=== PATIENT | female | born 1990 | race Caucasian/White ===

== ENCOUNTER 2019-01-22 17:14 | Inpatient (IN) ==
[2019-01-22] MEDS ORDERED: OXYTOCIN 10 UNIT/1 ML IM PRN (19:04)
[2019-01-22] MEDS ORDERED: Carboprost Inj 250 MCG/ML AMP IM PRN (19:04)
[2019-01-22] MEDS ORDERED: Metoclopramide Inj 10 MG/2 ML VIAL IV PRN (19:04)
[2019-01-22] MEDS ORDERED: LIDOCAINE W/ SODIUM BICARB 0.5 ML SYR SUBD PRN (19:04)
[2019-01-22] MEDS ORDERED: fentaNYL Inj 100 MCG/2 ML VIAL IV PRN (19:04)
[2019-01-22] MEDS ORDERED: CITRIC ACID/SODIUM CITRATE 30 ML CUP PO PRN (19:04)
[2019-01-22] MEDS ORDERED: Lidocaine 1% 10 MG/ML - 20 ML VIAL SUBCUT PRN (19:04)
[2019-01-22] MEDS ORDERED: LIDOCAINE HCL 2 % 10 ML JELLY URO-JECT TOPICAL PRN (19:04)
[2019-01-22] MEDS ORDERED: Nalbuphine Inj 20 MG/ML Ampule IVP PRN (19:04)
[2019-01-22] MEDS ORDERED: MISOPROSTOL 200 MCG TABLET RECTAL PRN (19:04)
[2019-01-22] MEDS ORDERED: CALCIUM CARBONATE 500 MG (TUMS) CHEWABLE TABLET PO PRN (19:04)
[2019-01-22] MEDS ORDERED: diphenhydrAMINE 50 MG/1 ML VIAL IVP PRN (19:04)
[2019-01-22] MEDS ORDERED: METHYLERGONOVINE MALEATE 0.2 MG/1 ML VIAL IM PRN (19:04)
[2019-01-22] MEDS ORDERED: ePHEDrine Inj 50 MG/ML AMP IVP PRN (19:04)
[2019-01-22] MEDS ORDERED: BUTORPHANOL TARTRATE 2 MG/1 ML VIAL IVP PRN (19:04)
[2019-01-22] MEDS ORDERED: ONDANSETRON 4 MG/2 ML VIAL IVP PRN ×2 (19:04)
[2019-01-22] MEDS ORDERED: Naloxone Inj 0.01 MG in Sodium Chloride 0.9% vial 1 ML IVP PRN (19:04)
[2019-01-22] MEDS ORDERED: FAMOTIDINE 20 MG/2 ML VIAL IVP PRN ×2 (19:04)
[2019-01-22] MEDS ORDERED: CefOXitin Inj 2 GM in Sodium Chloride 0.9% 100 ML IV PRN (19:04)
[2019-01-22] MEDS ORDERED: TERBUTALINE SULFATE 1 MG/1 ML SDV SUBCUT PRN (19:04)
[2019-01-22] MEDS ORDERED: Phenylephrine Inj 50 MCG in Sodium Chloride 0.9% vial 0.5 ML IVP PRN (19:04)
[2019-01-22] MEDS ORDERED: NALOXONE 0.4 MG/1 ML VIAL IVP PRN (19:04)
[2019-01-22] MEDS ORDERED: Oxytocin 20 Units + LR 20 UNIT/1,000 ML BAG IV SCH (19:15)
[2019-01-22] MEDS ORDERED: Zolpidem Tab 5 MG TAB PO PRN (20:01)
[2019-01-22] MEDS: Misoprostol Tab 100 MCG TAB VAGINAL PRN (20:23)
[2019-01-22 21:00] LABS: Hematocrit [HCT] 32.7 % (37.0-47.0); Hemoglobin [HGB] 11.2 g/dL (12.0-16.0); MEAN CORPUSCULAR HEMOGLOBIN 33.1 PG (27-31); MEAN CORPUSCULAR HGB CONC 34.3 g/dL (33-37); MEAN CORPUSCULAR VOLUME 96.7 FL (81-99); MEAN PLATELET VOLUME 10.8 FL (7.4-12.2); RED BLOOD COUNT 3.38 10^6/uL (4.20-5.40)
[2019-01-23] MEDS: Misoprostol Tab 100 MCG TAB VAGINAL PRN (01:07)
[2019-01-23] MEDS: Lactated Ringers-OB Dept 1,000 ML PRIMARY IV SCH ×2 (05:00→09:45)
[2019-01-23] MEDS ORDERED: Oxytocin 20 Units + LR 20 UNIT/1,000 ML BAG IV SCH ×2 (05:00→15:27)
[2019-01-23] MEDS ORDERED: Fent/Bupiv 2mcg/0.0625% Epid 250 ML ONE (09:21)
[2019-01-23] MEDS ORDERED: Lidocaine/Epi Inj 1.5% 5 ML AMPUL EPIDURAL ONE (09:21)
--- NOTE | 2019-01-23 09:47 | CRNA.PROCE ---
Central Neuraxis Block Placemt - - Safety Measures: Time Out Taken - - Type of Block: Epidural Reason for Block: Analgesia Moniters Used During Block: EKG, SPO2, NIBP Skin Prep Used: ChloroPrep Draped: Yes Skin Infiltration - Enter Amount Used in Comment Field: 1% Xylocaine (mL): Yes (skinwheal) Spinal Needle Used: 18 Hustead 80 mm Local Anesthetic - Enter Amount Used in Comment Field: 1.5 % Xylocaine with Epinephrine 1:200,000 (mL): Yes (5ml) Number of Centimeters Catheter Threaded: 4 Bioclusive Dressing Applied: Yes Anesthesia Time - Other Weight: 79.379 kg Height: 5 ft 8 in Body Mass Index (BMI): 26.6
[2019-01-23] MEDS ORDERED: fentaNYL 2 MCG/BUPIVACAINE 0.0625%/NS 0.9% 250 ML BAG EPIDURAL SCH (10:00)
[2019-01-23] MEDS ORDERED: Nalbuphine Inj 20 MG/ML Ampule IVP PRN (15:27)
[2019-01-23] MEDS ORDERED: Lidocaine 1% 10 MG/ML - 20 ML VIAL INTRADERM PRN (15:27)
[2019-01-23] MEDS ORDERED: LIDOCAINE HCL 2 % 10 ML JELLY URO-JECT TOPICAL PRN (15:27)
[2019-01-23] MEDS ORDERED: HYDROcodone-APAP 5 MG -325 MG TABLET PO PRN (15:27)
[2019-01-23] MEDS ORDERED: diphenhydrAMINE 50 MG/1 ML VIAL IVP PRN (15:27)
[2019-01-23] MEDS ORDERED: GLYCERIN/WITCH HAZEL 1 BOX TOPICAL PRN (15:27)
[2019-01-23] MEDS ORDERED: ACETAMINOPHEN 325 MG TABLET PO PRN (15:27)
[2019-01-23] MEDS ORDERED: diphenhydrAMINE 25 MG CAPSULE PO PRN (15:27)
[2019-01-23] MEDS ORDERED: LANOLIN HPA 40 GM TUBE TOPICAL PRN (15:27)
[2019-01-23] MEDS ORDERED: CALCIUM CARBONATE 500 MG (TUMS) CHEWABLE TABLET PO PRN (15:27)
[2019-01-23] MEDS ORDERED: Ondansetron ODT Tab 4 MG TAB PO PRN (15:27)
[2019-01-23] MEDS ORDERED: BENZOCAINE/MENTHOL SPRAY 56 GM BOTTLE TOPICAL PRN (15:27)
[2019-01-23] MEDS ORDERED: ONDANSETRON 4 MG/2 ML VIAL IVP PRN (15:27)
[2019-01-23] MEDS: IBUPROFEN 800 MG TABLET PO PRN (17:03)
--- NOTE | 2019-01-23 21:35 | OB.DEL.SUM ---
Delivery Note Delivery Summary: Pt is a 28 yo G2 now P1 at 39 6/7 weeks by early u/s who presented last noc for cervical ripening and later induction for term . She received 2 doses of cytotec and proceeded into active labor. This morning, she had an epidural placed for analgesia and then amniotomy was performed when she was 4/-1. T here was a small amount of clear fluid. An IUPC was placed to more closely monitor contractions and pitocin was used to augment labor. The pt proceeded normally through active labor to c/c/+1 at 1230. She began to push a short time later. She delivered a viable female infant over a small right mediolateral episiotomy after verbal consent was obtained from the patient. The indication for the episiotomy was a tight vaginal introitus and maternal fatigue. Time of delivery was 1403. After delivery, the baby's nose and mouth were suctioned with the bulb suction. Cord clamping was delayed x 45 seconds and baby was placed on mom's chest during this time. The cord was then doubly clamped by myself and cut by the father of the baby. The placenta delivered spontaneously and intact a short time later. There was a 3 vessel cord. Cord gas and cord blood were obtained for analysis. 20 mU of pitocin was infused. With bimanual massage, the uterus firmed up nicely. The vagina and perineum were examined and the second degree episiotomy was repaired in the normal fashion with 3-0 vicryl rapide suture. There was no extension of the episiotomy. A right vaginal sidewall laceration was also noted and repaired in the normal fashion with 3-0 vicryl rapide suture. No other lacerations were noted. Apgars were 9 at 1 minute and 10 at 5 minutes. Baby weighed 7#12oz and was 20 inches long. Both mom and baby tolerated delivery well and are in stable condition at this time.
[2019-01-24] MEDS: IBUPROFEN 800 MG TABLET PO PRN ×2 (00:43→09:37)
[2019-01-24 04:58] LABS: Hematocrit [HCT] 32.6 % (37.0-47.0); Hemoglobin [HGB] 11.2 g/dL (12.0-16.0); MEAN CORPUSCULAR HEMOGLOBIN 33.2 PG (27-31); MEAN CORPUSCULAR HGB CONC 34.4 g/dL (33-37); MEAN CORPUSCULAR VOLUME 96.7 FL (81-99); MEAN PLATELET VOLUME 10.7 FL (7.4-12.2); RED BLOOD COUNT 3.37 10^6/uL (4.20-5.40)
[2019-01-24] MEDS ORDERED: DOCUSATE 100 MG CAPSULE PO SCH (09:00)
[2019-01-24] MEDS ORDERED: Prenatal Multivitamin Tab 1 TAB TAB PO SCH (09:00)
--- NOTE | 2019-01-24 10:01 | OB.PROGRES ---
Subjective Post Day: 1 Pain Management: PO Coello Catheter: No Flatus: Yes Lochia Color: Rubra/Red Scant < 10 ml Diet: Regular Feeding Method: Exculsively Ambulating: Yes Objective - General General Appearance: POSITIVE: No Acute Distress, Cooperative - Cardiovacular Cardiovascular Exam: POSITIVE: RRR, No Murmur Edema: No Pedal Edema Extremities: Negative Irma's - Bilaterally - Respiratory Respiratory Exam: POSITIVE: Clear to Auscultation - Bilaterally, Breathing Non Labored - Abdomen Bowel Sounds: Present Assesstment / Plan (1) Status post vaginal delivery Current Visit: Yes Status: Acute Assessment / Plan: -routine cares. -rh positive. -breast feeding going well. -rubella immune. -probable d/c home later today.
[2019-01-24 10:21] VITALS: BP 150/49; RESP 16; TEMP 97.4; O2SAT 94
== END 2019-01-24 16:23 | disposition home or self-care (01) | DRG 807 ==
LOC: OBIP 18:52
PROVIDERS: ADMIT Family Medicine; ATTEND Family Medicine